=== PATIENT | female | born 1980 | race American Indian/Alaskan Native ===

== ENCOUNTER 2016-09-09 09:25 | Outpatient (CLI) | payer MEDICAID ==
[2016-09-09] MEDS ORDERED: LACTATED RINGERS 500 ML IV ONE ×2 (10:42→13:00)
[2016-09-09 10:57] LABS: Bilirubin,Urine NEG (Negative); Blood,Urine NEG (Negative); Ketones,Urine NEG (Negative); Leukocyte Esterase,Urine MOD (Negative); Nitrite,Urine NEG (Negative)
[2016-09-09 11:22] LABS: RBC,Urine < 1.0 /HPF (0.0-6.0)
[2016-09-09 11:23] LABS: Mucus,Urine 1+ /HPF
[2016-09-09 11:26] LABS: Bacteria,Urine 1+ /HPF (Negative)
[2016-09-09 11:28] VITALS: BP 101/64
[2016-09-09] MEDS: BRETHINE SUB-Q SCH ×3 (12:10→13:00)
== END 2016-09-09 14:17 | disposition home or self-care (01) ==
LOC: TRG 09:25
PROVIDERS: ATTEND Obstetrics & Gynecology
DX: O47.03 False labor before 37 completed weeks of gestation, third trimester (principal); Z3A.33 33 weeks gestation of pregnancy
CPT/HCPCS: 36415; 59025; 81001; 82731; 96360; 96361; 96372; J3105; J7120